=== PATIENT | male | born 1975 | race African-American/Black ===

== ENCOUNTER 2016-08-25 12:21 | Emergency (ER) | payer OTHER ==
--- NOTE | ~2016-08-25 | CR72 ---
[facility] A Service of [facility] & [facility] RADIOLOGY TEXT RESULTS PATIENT: TORITO PALMER LOCATION: [facility] : 75 UNIT #: [id number] AGE: [address]: Asa Gonzalez MD SEX: M ORDER DR: [id number] [facility] [address] [place], [place] [address] [id number] E MR#: [id number] Acc #: [id number] NAME: TORITO PALMER : 1975 SEX: M STUDY DATE/TIME: 08/25/2016 13:07 UNIT: [facility] ROOM: STUDY DESCRIPTION: CR Chest Single View Portable Attending Physician: Asa Gonzalez M.D. Ordering Physician: Asa Gonzalez M.D. Primary Care Physician: Primary Care Physician No MEDICAL IMAGING REPORT This report is preliminary unless electronic signature is present EXAM Chest portable, 08/25/2016 13:07 hours HISTORY 41-year-old man with vomiting and chest pain today. History of hypertension. COMPARISON None FINDINGS Single upright portable view demonstrates heart size within normal limits. Mediastinal, hilar and aortic contours are normal. Lung volumes are slightly low with calcified granulomatous changes. There is no acute pulmonary density or pleural effusion. No free air is seen in the abdomen. IMPRESSION 1. Slightly low lung volumes with benign calcified granulomatous changes. No acute cardiopulmonary findings. 2. No free air seen in the abdomen. Dictated by... Sheela Parekh M.D. THIS IS AN ELECTRONICALLY VERIFIED REPORT Sheela Parekh M.D. at 08/25/2016 2:27 PM Vangie TD: 08/25/2016 13:29 JOB #: [id number] MEDICAL IMAGING REPORT Page 1 of 1 COPY
--- NOTE | ~2016-08-25 | EKG ---
PATIENT: TORITO PALMER UNIT #: [id number] Ventricular Rate: 62 BPM Atrial Rate: 62 BPM P-R Interval: 174 ms QRS Duration: 94 ms Q-T Interval: 464 ms QTC Calculation(Bezet): 470 ms P [place]: 42 degrees Calculated R [place]: 31 degrees Calculated T [place]: 31 degrees Diagnosis Line: Normal sinus rhythm Diagnosis Line: Normal ECG Diagnosis Line: No previous ECGs available Diagnosis Line: Confirmed by PIERRE CLEMENS MD ([id number]) on 08/25/2016 Diagnosis Line: 5:27:34 PM INTERPRETING MD: JAYLEEN WALLER
[~2016-08-25 12:21] MED LIST: IBUPROFEN800 MG PO; PEN-VEE K PO; ULTRAM PO
[2016-08-25 13:03] LABS: POC - CKMB 2.6 ng/mL (0.0-7.9); POC - TROPONIN <0.05 ng/mL (<=0.05)
[2016-08-25 13:19] LABS: BASOPHIL% 0.2 % (0-2.5); HEMATOCRIT 46.8 % (38.0-50.0); HEMOGLOBIN 15.5 gm/dL (13.0-16.0); LYMPHOCYTE# 1.3 X10e3 (1.0-3.5); LYMPHOCYTE% 8.1 % (17.0-45.0); MEAN CELL VOLUME 86.9 FL (83-96); MEAN CORPUSCULAR HEMOGLOBIN 28.8 PG (28-34); MEAN CORPUSCULAR HGB CONC 33.2 g/dL (30-36); MEAN PLATELET VOLUME 9.5 FL (6.5-11.5); MONOCYTE# 0.5 X10e3 (0-1.0); MONOCYTE% 2.8 % (3.0-12.0); NEUTROPHIL# 14.2 X10e3 (1.5-7.1); NEUTROPHIL% 88.9 % (40-75); PLATELET COUNT 312 X10e3 (140-420); RED BLOOD COUNT 5.38 X10e (3.90-5.60); RED CELL DISTRIBUTION WIDTH 12.2 % (11.0-15.5)
[2016-08-25 13:20] LABS: DIFF IND YES
[2016-08-25 13:29] LABS: URINE SOURCE CLEAN CATCH
[2016-08-25 13:39] LABS: URINE APPEARANCE CLEAR; URINE BILIRUBIN NEG (NEG); URINE BLOOD NEG (NEG); URINE COLOR YELLOW; URINE GLUCOSE NEG (NEG); URINE KETONE 2+ (NEG); URINE LEUKOCYTE ESTERASE NEG (NEG); URINE NITRATE NEG (NEG); URINE PROTEIN TRACE (NEG); URINE SPECIFIC GRAVITY 1.023 (1.003-1.035)
[2016-08-25 13:41] LABS: CULTURE INDICATED? NO
[2016-08-25 13:45] LABS: PLATELET ESTIMATE NORMAL (NORMAL)
[2016-08-25 13:49] LABS: AMPHETAMINE NEG (NEG); BARBITURATES NEG (NEG); BENZODIAZEPINES NEG (NEG); COCAINE NEG (NEG); MARIJUANA POS (NEG); OPIATES POS (NEG); TRICYCLIC ANTIDEPRESSANTS NEG (NEG); U METHADONE NEG (NEG)
[2016-08-25 13:54] LABS: ALBUMIN SERUM 4.9 g/dL (3.5-5.0); BILIRUBIN, DIRECT 0.2 mg/dL (0.0-0.2); BILIRUBIN,INDIRECT 1.1 mg/dL (0.0-0.9); BILIRUBIN,TOTAL 1.3 mg/dL (0.2-2.0); CALCIUM SERUM 9.7 mg/dL (8.4-10.2); GLOM FILT RATE Estimated 107.9 mL/min (>60); POTASSIUM 3.6 mmol/L (3.5-5.1); PROTEIN TOTAL SERUM 8.1 g/dL (6.0-8.3)
== END 2016-08-25 14:31 | disposition home or self-care (01) ==
LOC: CED 12:21
PROVIDERS: Emergency Medicine
DX: F10.10 Alcohol abuse, uncomplicated (principal); R11.2 Nausea with vomiting, unspecified
CPT/HCPCS: 36415; 71010; 80048; 80076; 80307; 81003; 82550; 82553; 82947; 83690; 84484; 85025; 93005; 96361; 96374; 99284; G0480; J2405

== ENCOUNTER 2016-10-25 15:23 | Emergency (ER) | payer OTHER ==
[~2016-10-25] VITALS: Ht 188 cm; Wt 95.2 kg
[2016-10-25 15:44] LABS: BASOPHIL# 0.1 X10e3 (0-0.3); BASOPHIL% 0.7 % (0-2.5); EOSINOPHIL% 0.1 % (0.0-7.0); HEMATOCRIT 47.8 % (38.0-50.0); HEMOGLOBIN 15.8 gm/dL (13.0-16.0); LYMPHOCYTE# 2.1 X10e3 (1.0-3.5); MEAN CELL VOLUME 86.6 FL (83-96); MEAN CORPUSCULAR HEMOGLOBIN 28.6 PG (28-34); MEAN CORPUSCULAR HGB CONC 33.1 g/dL (30-36); MEAN PLATELET VOLUME 8.9 FL (6.5-11.5); MONOCYTE# 1.3 X10e3 (0-1.0); MONOCYTE% 9.6 % (3.0-12.0); NEUTROPHIL# 9.7 X10e3 (1.5-7.1); NEUTROPHIL% 73.6 % (40-75); PLATELET COUNT 297 X10e3 (140-420); RED BLOOD COUNT 5.52 X10e (3.90-5.60); RED CELL DISTRIBUTION WIDTH 12.3 % (11.0-15.5); WHITE BLOOD COUNT 13.1 X10e3 (4.0-10.5)
[2016-10-25 15:45] LABS: DIFF IND NO
[2016-10-25 15:48] LABS: URINE SOURCE CLEAN CATCH
[2016-10-25 15:54] LABS: URINE APPEARANCE CLEAR; URINE BILIRUBIN NEG (NEG); URINE BLOOD 1+ (NEG); URINE COLOR YELLOW; URINE GLUCOSE NEG (NEG); URINE KETONE NEG (NEG); URINE LEUKOCYTE ESTERASE NEG (NEG); URINE NITRATE NEG (NEG); URINE PH 5.5 (5-8); URINE PROTEIN TRACE (NEG); URINE SPECIFIC GRAVITY 1.031 (1.003-1.035); URINE UROBILINOGEN 0.2 MG/DL (NEG)
[2016-10-25 16:00] LABS: URINE BACTERIA AUWI NEG (NEGATIVE); URINE SQUAMOUS EPITHELIAL CELL OCC /[HPF]
[2016-10-25 16:04] LABS: CULTURE INDICATED? NO
[2016-10-25 16:12] LABS: ALBUMIN SERUM 4.9 g/dL (3.5-5.0); BILIRUBIN, DIRECT 0.1 mg/dL (0.0-0.2); BILIRUBIN,INDIRECT 0.5 mg/dL (0.0-0.9); BILIRUBIN,TOTAL 0.6 mg/dL (0.2-2.0); BUN/CREATININE RATIO 10.9; CALCIUM SERUM 9.6 mg/dL (8.4-10.2); CREATININE SERUM 1.1 mg/dL (0.6-1.4); GLOM FILT RATE Estimated 96.2 mL/min (>60); PROTEIN TOTAL SERUM 8.9 g/dL (6.0-8.3)
[2016-10-25 16:14] LABS: POTASSIUM 2.6 mmol/L (3.5-5.1)
== END 2016-10-25 19:30 | disposition home or self-care (01) ==
LOC: CED 15:23
DX: K29.20 Alcoholic gastritis without bleeding (principal); E87.6 Hypokalemia
CPT/HCPCS: 36415; 80048; 80076; 81003; 83690; 85025; 96365; 96375; 99285; J2405